=== PATIENT | male | born 1995 | race African-American/Black ===

== ENCOUNTER 2022-12-06 10:09 | Emergency (ER) | payer OTHER ==
[~2022-12-06] VITALS: Ht 177.8 cm; Wt 104.0 kg
[2022-12-06 11:00] VITALS: BP 134/76
[2022-12-06] MEDS ORDERED: KETOROLAC TROMETH 30 MG/ML 1ML VIAL IM ONE (11:45)
[2022-12-06] MEDS ORDERED: IBUP1TAB5 PO (12:27)
[2022-12-06] MEDS ORDERED: CYCL-839 PO (12:27)
== END 2022-12-06 12:39 | disposition home or self-care (01) ==
LOC: ER 10:09
DX: S39.012A Strain of muscle, fascia and tendon of lower back, initial encounter (principal); V49.9XXA Car occupant (driver) (passenger) injured in unspecified traffic accident, initial encounter; Y93.89 Activity, other specified; Y92.89 Other specified places as the place of occurrence of the external cause; Y99.8 Other external cause status
CPT/HCPCS: 72070; 72100; 96372; 99284; J1885